=== PATIENT | female | born 1955 | race American Indian/Alaskan Native ===

== ENCOUNTER 2017-10-27 14:16 | Emergency (ER) | payer OTHER ==
[~2017-10-27] VITALS: Ht 162.6 cm; Wt 75.8 kg
[~2017-10-27 14:16] MED LIST: ALEN70 PO; ATEN50 PO; CYCL10 PO; Cyclobenzaprine5 MG PO; DIPH50 PO; ERGO50000 PO; FAMO20 PO; GABA300 PO; HYDPAM25 PO; IBUP800 PO; LACT10SY PO; LEVSOD100 PO; LEVSOD88 PO; LISINOPRIL PO; LORA1 PO; MELO7.5; NORT75 PO; Naprosyn500 MG PO; Norco 10-325 T1 EACH PO; Norco 5-325 Ta1 EACH PO; PRED10 PO; RXLORA1 PO; TRIM200S PR; Ultram50 MG PO; VITAMIN D31000 UNIT PO; [UNRECOGNIZED DRUG - OTHER]
[2017-10-27 14:52] LABS: Hematocrit 32.3 % (33.0-51.0); Hemoglobin 10.6 g/dL (11.5-16.0); Mean Corpuscular HGB 30.2 pg (26.0-34.0); Mean Corpuscular HGB Conc 32.8 g/dL (31.5-36.5); Mean Corpuscular Volume 92 fL (80-100); Mean Platelet Volume 10.5 fL (9.1-12.4); Platelet Count 222 K/mm3 (150-400); RDW Coefficient Variation 12.1 % (11.7-14.2); RDW Standard Deviation 40.6 fL (35.1-46.3); Red Blood Cell Count 3.51 M/mm3 (3.80-5.20); White Blood Cell Count 7.48 K/mm3 (4.00-11.30)
[2017-10-27 15:08] LABS: Anion Gap 7 mmol/L (6-16); Blood Urea Nitrogen 11 mg/dL (8-24); Bun/Creatinine Ratio 12.3 (12.0-20.0); CO2, Blood 27 mmol/L (21-32); Calcium, Blood 8.4 mg/dL (8.5-10.1); Chloride, Blood 92 mmol/L (98-108); Creatinine, Blood 0.89 mg/dL (0.40-1.00); Glomerular Filtration Rate >60 (60-); Glucose, Blood 92 mg/dL (70-99); Potassium, Blood 4.4 mmol/L (3.5-5.5); Sodium, Blood 126 mmol/L (136-145); Troponin I <0.015 ng/mL (0.000-0.040)
== END 2017-10-27 15:23 | disposition home or self-care (01) ==
LOC: ER 14:16
PROVIDERS: Emergency Medicine
DX: R00.1 Bradycardia, unspecified (principal); I10 Essential (primary) hypertension; E03.9 Hypothyroidism, unspecified; F17.210 Nicotine dependence, cigarettes, uncomplicated
CPT/HCPCS: 36415; 80048; 84484; 85027; 93005; 93010; 99283

== ENCOUNTER 2019-03-05 07:20 | Day surgery (SDC) | payer OTHER ==
[~2019-03-05] VITALS: Wt 72.4 kg
[~2019-03-05 07:20] MED LIST changes: +AMLO5 PO; +LOSA50 PO; +Prilosec Otc20 MG PO
--- NOTE | 2019-03-05 08:27 | NUR ---
03/05/19 0827 Jamilah Jacobson History, Chart, Medications and Allergies reviewed before start of procedure. PATIENT CONFIRMS NPO STATUS AND AGREES WITH SCHEDULED PROCEDURE. MONITOR INTACT WITH CONTINUOUS PULSE OXIMETRY AND INTERMITTENT BP. O2 VIA N/C INTACT THROUGHOUT SEDATION/PROCEDURE. 3-LEAD EKG REVIEWED WITH PHYSICIAN PRIOR TO START OF PROCEDURE. PATIENT DETERMINED TO BE ASA APPROPRIATE FOR PROPOFOL SEDATION PRIOR TO START OF PROCEDURE BY DR. RUBI.
--- NOTE | 2019-03-05 09:19 | NUR ---
Patient up to Ambulate independently. Gait steady. Discharge instructions reviewed with patient. Patient verbalizes understanding. Copy given to patient to take home. Patient States Post-Procedure ride home has been arranged. Discharged via wheelchair to private car for ride home.
== END 2019-03-05 23:10 | disposition home or self-care (01) ==
LOC: ORSCMMR 07:20 → ORD 08:30 → ORSCMMR 08:30
PROVIDERS: Internal Medicine Gastroenterology
PROC: 0DB68ZX Excision of Stomach, Via Natural or Artificial Opening Endoscopic, Diagnostic (ICD-10-PCS; principal; 2019-03-05 08:30)
DX: R10.13 Epigastric pain (principal); K21.9 Gastro-esophageal reflux disease without esophagitis; K44.9 Diaphragmatic hernia without obstruction or gangrene; I10 Essential (primary) hypertension; E03.9 Hypothyroidism, unspecified; Z79.899 Other long term (current) drug therapy; Z87.891 Personal history of nicotine dependence
CPT/HCPCS: 88305; 88342; J2704; J7120

== ENCOUNTER 2020-10-06 11:08 | Emergency (ER) | payer OTHER ==
[~2020-10-06] VITALS: Ht 152.4 cm; Wt 79.4 kg
[2020-10-06 12:26] LABS: Source, Urine Clean Catch
[2020-10-06 12:36] LABS: Appearance, Urine Bloody (Clear); Bilirubin, Urine Neg (Neg); Blood, Urine 5+ (Neg); Color, Urine Red (P-Yellow); Glucose Qualitative, Urine Neg (Neg); Ketones, Urine Neg (Neg); Leukocyte Esterase, Urine 3+ (Neg); Nitrite, Urine Neg (Neg); Protein, Urine 3+ (Neg); Urobilinogen, Urine NORM (Normal)
[2020-10-06] MEDS ORDERED: PREG75 PO (12:42)
[2020-10-06] MEDS ORDERED: Prilosec Otc20 MG PO (12:42)
[2020-10-06] MEDS ORDERED: ALBU90OI INH (12:42)
[2020-10-06] MEDS ORDERED: FURO40 PO (12:42)
[2020-10-06] MEDS ORDERED: DULO60 PO (12:43)
[2020-10-06] MEDS ORDERED: HYDCHL25 PO (12:44)
[2020-10-06] MEDS ORDERED: Aspir 8181 MG PO (12:44)
[2020-10-06] MEDS ORDERED: POTCHL20ER PO (12:45)
[2020-10-06 13:01] LABS: Red Blood Cells, Urine TNTC /hpf (0-2)
[2020-10-06 13:02] LABS: Bacteria Rare /hpf; Squamous Epithelial Cells Not Seen /hpf (Few)
[2020-10-06] MEDS ORDERED: KEFLEX500 MG PO (13:24)
== END 2020-10-06 13:44 | disposition home or self-care (01) ==
LOC: ER 11:08
PROVIDERS: Physician Assistant
DX: N39.0 Urinary tract infection, site not specified (principal); R31.9 Hematuria, unspecified; I10 Essential (primary) hypertension; E03.9 Hypothyroidism, unspecified; F17.200 Nicotine dependence, unspecified, uncomplicated; Z91.02 Food additives allergy status; Z79.899 Other long term (current) drug therapy
CPT/HCPCS: 81001; 87077; 87086; 87186; A9270-GY

== ENCOUNTER → 2021-12-04 | Outpatient (CLI) | payer OTHER ==
[~2021-12-04] MED LIST changes: +ALBU90OI INH; +Aspir 8181 MG PO; +DULO60 PO; +FURO40 PO; +HYDCHL25 PO; +KEFLEX500 MG PO; +POTCHL20ER PO; +PREG75 PO
[2021-12-04 19:54] LABS: Percent Saturation 10.2 % (15.0-50.0)
== END | disposition home or self-care (01) ==
LOC: LAB 11:30 → LAB SHORT 11:30
PROVIDERS: Internal Medicine Hematology & Oncology
DX: D51.9 Vitamin B12 deficiency anemia, unspecified (principal)
CPT/HCPCS: 82607; 82728; 82746; 83540; 83550

== ENCOUNTER → 2021-12-06 | Outpatient (CLI) | payer OTHER | LOC: LAB SHORT 16:34 | PROVIDERS: Internal Medicine Hematology & Oncology | DX: D64.9 Anemia, unspecified (principal) | CPT/HCPCS: 81050 ==

== ENCOUNTER → 2022-03-01 | Outpatient (CLI) | payer OTHER ==
[2022-03-01 14:15] LABS: Albumin/Globulin Ratio 1.4 (0.8-1.8); Bilirubin, Total 0.4 mg/dL (0.1-1.0); Bun/Creatinine Ratio 10.7 (12.0-20.0); Calcium, Blood 9.1 mg/dL (8.5-10.1); Creatinine, Blood 0.75 mg/dL (0.40-1.00); Globulin, Blood 2.9 g/dL (2.2-4.0); Phosphorus, Blood 3.6 mg/dL (2.5-4.9); Potassium, Blood 4.2 mmol/L (3.5-5.5); Total Protein, Blood 6.9 g/dL (6.4-8.2)
== END | disposition home or self-care (01) ==
LOC: LAB SHORT 12:54
PROVIDERS: Internal Medicine Hematology & Oncology
DX: E53.8 Deficiency of other specified B group vitamins (principal); D50.9 Iron deficiency anemia, unspecified
CPT/HCPCS: 80053; 82728; 83540; 83550; 84100

== ENCOUNTER 2022-04-09 11:21 | Emergency (ER) | payer OTHER ==
[~2022-04-09] VITALS: Ht 152.4 cm; Wt 77.1 kg
[2022-04-09 12:40] LABS: BASOPHILS ABSOLUTE AUTO 0.05 K/mm3 (0.00-0.23); BASOPHILS PERCENT AUTO 1 % (0-2); EOSINOPHILS ABSOLUTE AUTO 0.39 K/mm3 (0.00-0.68); EOSINOPHILS PERCENT AUTO 5 % (0-6); Hematocrit 31.8 % (33.0-51.0); IMMATURE GRAN ABSOLUTE AUTO 0.02 K/mm3 (0.00-0.10); IMMATURE GRAN PERCENT AUTO 0 % (0-1); LYMPHOCYTES ABSOLUTE AUTO 1.54 K/mm3 (0.84-5.20); LYMPHOCYTES PERCENT AUTO 19 % (21-46); MONOCYTES ABSOLUTE AUTO 0.62 K/mm3 (0.16-1.47); MONOCYTES PERCENT AUTO 8 % (4-13); Mean Corpuscular HGB 31.2 pg (26.0-34.0); Mean Corpuscular HGB Conc 34.6 g/dL (31.5-36.5); Mean Corpuscular Volume 90 fL (80-100); Mean Platelet Volume 10.5 fL (9.1-12.4); NEUTROPHILS ABSOLUTE AUTO 5.53 K/mm3 (1.96-9.15); NEUTROPHILS PERCENT AUTO 68 % (41-73); Platelet Count 256 K/mm3 (150-400); RDW Coefficient Variation 12.3 % (11.7-14.2); RDW Standard Deviation 40.5 fL (35.1-46.3); Red Blood Cell Count 3.53 M/mm3 (3.80-5.20); White Blood Cell Count 8.15 K/mm3 (4.00-11.30)
[2022-04-09 12:56] LABS: Albumin, Blood 3.8 g/dL (3.4-5.0); Albumin/Globulin Ratio 1.2 (0.8-1.8); Bilirubin, Total 0.3 mg/dL (0.1-1.0); Bun/Creatinine Ratio 10.5 (12.0-20.0); Creatinine, Blood 0.76 mg/dL (0.40-1.00); Globulin, Blood 3.2 g/dL (2.2-4.0); Potassium, Blood 4.6 mmol/L (3.5-5.5)
== END 2022-04-09 13:51 | disposition home or self-care (01) ==
LOC: ER 11:21
PROVIDERS: Physician Assistant
DX: S20.212A Contusion of left front wall of thorax, initial encounter (principal); F17.210 Nicotine dependence, cigarettes, uncomplicated; W01.198A Fall on same level from slipping, tripping and stumbling with subsequent striking against other object, initial encounter; Z79.899 Other long term (current) drug therapy; Z79.82 Long term (current) use of aspirin
CPT/HCPCS: 36415; 71101; 80053; 85025

== ENCOUNTER → 2022-07-05 | Outpatient (CLI) | payer OTHER ==
[2022-07-05 18:12] LABS: Percent Saturation 24.3 % (15.0-50.0)
== END | disposition home or self-care (01) ==
LOC: LAB 13:41 → LAB SHORT 13:41
PROVIDERS: Internal Medicine Hematology & Oncology
DX: D50.0 Iron deficiency anemia secondary to blood loss (chronic) (principal)
CPT/HCPCS: 82728; 83540; 83550

== ENCOUNTER 2022-08-30 14:42 | Emergency (ER) | payer OTHER ==
[~2022-08-30] VITALS: Ht 152.4 cm; Wt 73.9 kg
== END 2022-08-30 20:02 | disposition home or self-care (01) ==
LOC: ER 14:42
DX: S52.572A Other intraarticular fracture of lower end of left radius, initial encounter for closed fracture (principal); S52.612A Displaced fracture of left ulna styloid process, initial encounter for closed fracture; I10 Essential (primary) hypertension; E03.9 Hypothyroidism, unspecified; F17.200 Nicotine dependence, unspecified, uncomplicated; Z88.8 Allergy status to other drugs, medicaments and biological substances; Z79.899 Other long term (current) drug therapy; Z79.82 Long term (current) use of aspirin; W01.0XXA Fall on same level from slipping, tripping and stumbling without subsequent striking against object, initial encounter
CPT/HCPCS: 71101; 73100; 73110

== ENCOUNTER → 2022-09-03 | Outpatient (CLI) | payer OTHER ==
[2022-09-03 15:28] LABS: Albumin, Blood 3.4 g/dL (3.4-5.0); Albumin/Globulin Ratio 1.2 (0.8-1.8); Bilirubin, Total 0.3 mg/dL (0.1-1.0); Bun/Creatinine Ratio 8.9 (12.0-20.0); Calcium, Blood 8.5 mg/dL (8.5-10.1); Creatinine, Blood 0.79 mg/dL (0.40-1.00); Globulin, Blood 2.9 g/dL (2.2-4.0); Potassium, Blood 4.2 mmol/L (3.5-5.5); Total Protein, Blood 6.3 g/dL (6.4-8.2)
== END | disposition home or self-care (01) ==
LOC: LAB SHORT 12:42 → LAB 12:42
PROVIDERS: Internal Medicine Hematology & Oncology
DX: D50.0 Iron deficiency anemia secondary to blood loss (chronic) (principal)
CPT/HCPCS: 80053; 84100

== ENCOUNTER 2022-09-06 10:47 | Day surgery (SDC) | payer OTHER ==
[~2022-09-06] VITALS: Ht 154.9 cm; Wt 76.7 kg
[2022-09-06] MEDS ORDERED: Ultram50 MG PO (11:21)
--- NOTE | 2022-09-06 13:27 | NUR ---
PT BELONGINGS PLACED [facility] FOR S[facility]EK[facility]. PT GLASSES AND DENTURES BROUGHT TO PACU FOR SAFEKEEPING. PT WENT TO BR JUST PRIOR TO OR.
--- NOTE | 2022-09-06 16:28 | NUR ---
Discharge instructions reviewed with patient. Patient verbalizes understanding. Copy given to patient to take home. PT AT BEDSIDE. 2ND PERCOCET GIVEN PER ORDER. ICE TO WRIST, PT DOING WELL KEEPING IT ELEVATED. PT READY TO GO HOME, DRESSED WITH HUSBANDS HELP. VSS. PT TOLERATED JUICE AND PUDDING. GLASSES AND DENTURES GIVEN BACK TO PT. Discharged via wheelchair to private car for ride home.
--- NOTE | 2022-09-06 16:34 | NUR ---
CAP REFILL LESS THAN 3 SEC, PT ABLE TO WIGGLE FINGERS ON OPERATIVE SIDE, FINGERS ARE SWOLLEN. INSTRUCTED PT AND TO CHECK CIRCULATION.
== END 2022-09-06 16:30 | disposition home or self-care (01) ==
LOC: ORSCMMR 10:47 → ORD 12:30 → ORSCMMR 12:30
PROVIDERS: Orthopaedic Surgery
PROC: 0PSJ04Z Reposition Left Radius with Internal Fixation Device, Open Approach (ICD-10-PCS; principal; 2022-09-06 13:30)
DX: S52.572A Other intraarticular fracture of lower end of left radius, initial encounter for closed fracture (principal); W17.89XA Other fall from one level to another, initial encounter; I10 Essential (primary) hypertension; E78.5 Hyperlipidemia, unspecified; E03.9 Hypothyroidism, unspecified; Z79.899 Other long term (current) drug therapy; F32.A Depression, unspecified; Z79.82 Long term (current) use of aspirin
CPT/HCPCS: A9270; C1713; J0171; J0690; J1100; J2250; J2405; J2704; J3010; J7120

== ENCOUNTER → 2022-11-12 | Outpatient (CLI) | payer OTHER ==
[2022-11-12 17:34] LABS: Albumin, Blood 3.7 g/dL (3.4-5.0); Albumin/Globulin Ratio 1.5 (0.8-1.8); Bilirubin, Total 0.3 mg/dL (0.1-1.0); Bun/Creatinine Ratio 11.1 (12.0-20.0); Calcium, Blood 8.5 mg/dL (8.5-10.1); Creatinine, Blood 0.81 mg/dL (0.40-1.00); Globulin, Blood 2.4 g/dL (2.2-4.0); Percent Saturation 44.5 % (15.0-50.0); Phosphorus, Blood 3.1 mg/dL (2.5-4.9); Potassium, Blood 4.1 mmol/L (3.5-5.5); Thyroid Stimulating Hormone 9.02 uIU/mL (0.360-4.800); Thyroxine (T4) 10.7 ug/dL (4.8-13.9); Total Protein, Blood 6.1 g/dL (6.4-8.2)
== END | disposition home or self-care (01) ==
LOC: LAB SHORT 12:38 → LAB 12:38
PROVIDERS: Internal Medicine Hematology & Oncology
DX: D50.0 Iron deficiency anemia secondary to blood loss (chronic) (principal); E78.5 Hyperlipidemia, unspecified; E53.8 Deficiency of other specified B group vitamins
CPT/HCPCS: 80053; 82607; 82728; 82746; 83540; 83550; 84100; 84436; 84443

== ENCOUNTER → 2023-05-09 | Outpatient (CLI) | payer OTHER ==
[2023-05-09 19:17] LABS: Percent Saturation 29.5 % (15.0-50.0); Thyroxine (T4) 12.2 ug/dL (4.8-13.9)
[2023-05-09 19:20] LABS: Albumin/Globulin Ratio 1.4 (0.8-1.8); Bilirubin, Total 0.4 mg/dL (0.1-1.0); Bun/Creatinine Ratio 8.7 (12.0-20.0); Calcium, Blood 8.9 mg/dL (8.5-10.1); Creatinine, Blood 0.8 mg/dL (0.40-1.00); Globulin, Blood 2.8 g/dL (2.2-4.0); Phosphorus, Blood 3.3 mg/dL (2.5-4.9); Potassium, Blood 4.9 mmol/L (3.5-5.5); Thyroid Stimulating Hormone 2.14 uIU/mL (0.360-4.800); Total Protein, Blood 6.8 g/dL (6.4-8.2)
== END ==
LOC: LAB SHORT 16:12 → LAB 16:12
PROVIDERS: Internal Medicine Hematology & Oncology
DX: E78.5 Hyperlipidemia, unspecified (principal); D50.0 Iron deficiency anemia secondary to blood loss (chronic)
CPT/HCPCS: 80053; 82728; 83540; 83550; 84100; 84436; 84443

== ENCOUNTER 2023-07-19 17:55 | Emergency (ER) | payer OTHER ==
[~2023-07-19] VITALS: Ht 152.4 cm; Wt 77.1 kg
[2023-07-19 17:57] VITALS: BP 168/59
[2023-07-19] MEDS ORDERED: ROPI1 PO (19:39)
== END 2023-07-19 19:55 | disposition home or self-care (01) ==
LOC: ER 17:55
DX: M25.551 Pain in right hip (principal); G25.81 Restless legs syndrome; Z88.8 Allergy status to other drugs, medicaments and biological substances; Z88.5 Allergy status to narcotic agent; Z79.899 Other long term (current) drug therapy; Z79.82 Long term (current) use of aspirin; I10 Essential (primary) hypertension; E03.9 Hypothyroidism, unspecified; F17.200 Nicotine dependence, unspecified, uncomplicated
CPT/HCPCS: 73502; 99284-25; A9270

== ENCOUNTER → 2023-10-17 | Outpatient (CLI) | payer OTHER ==
[~2023-10-17] MED LIST changes: +ROPI1 PO
[2023-10-17 18:28] LABS: Percent Saturation 31.7 % (15.0-50.0)
[2023-10-19 10:01] LABS: A/G RATIO 1.8 (1.2-2.2); ALKALINE PHOSPHATASE, S 65 IU/L (44-121); ALT (SGPT) 8 IU/L (0-32); AST (SGOT) 16 IU/L (0-40); BILIRUBIN, TOTAL <0.2 mg/dL (0.0-1.2); BUN 7 mg/dL (8-27); BUN/CREATININE RATIO 8 (12-28); CALCIUM, SERUM 9.6 mg/dL (8.7-10.3); CARBON DIOXIDE, TOTAL 21 mmol/L (20-29); CHLORIDE, SERUM 93 mmol/L (96-106); CREATININE, SERUM 0.93 mg/dL (0.57-1.00); GLOBULIN, TOTAL 2.5 g/dL (1.5-4.5); GLUCOSE, SERUM 87 mg/dL (70-99); PHOSPHORUS, SERUM 3.2 mg/dL (3.0-4.3); POTASSIUM, SERUM 4.4 mmol/L (3.5-5.2); PROTEIN, TOTAL, SERUM 6.9 g/dL (6.0-8.5); SODIUM, SERUM 133 mmol/L (134-144)
== END ==
LOC: LAB 17:32 → LAB SHORT 17:32
PROVIDERS: Internal Medicine Hematology & Oncology
DX: D50.0 Iron deficiency anemia secondary to blood loss (chronic) (principal)
CPT/HCPCS: 82728; 83540; 83550